=== PATIENT | male | born 1975 | race Caucasian/White ===

== ENCOUNTER 2024-01-15 12:01 | Inpatient (IN) ==
--- NOTE | 2024-01-15 12:37 | DR.EXTPAIN ---
HPI Time seen Time Seen by Provider: 01/15/24 12:35 PCP Primary Care Physician: KRISTY Sky Complaint/Symptoms Chief Complaint Doctor Comments: Patient was sent over by his primary care provider Dr. Carr a lot which is his throat doctor also. He need to be worked up for gas gangrene of his right foot. He does have diabetes. He states that the situation with his right foot has been going on for about a month and a half initially there was drainage done to that foot they opened up so it could drain. And just over the last couple days he began to notice that it began to swell up and he recently developed this smell to that foot. Was evaluated by Dr. Carr and was told to go to the ER here to be further evaluated. Chief Complaint:: Pt has a chronic wound on the bottom of the right foot with history of charcot foot. Pt has been followed by Dr. Carr. Thursday he noticed increased redness and swelling with a black area on the bottom of the right foot. Yesterday the swelling and pain to the foot had worsened. This morning he had a lot of purulent drainage noted from the wound. Pt sent pictures to Dr. Carr and was told to come to the ER because of the "gas in the wound" COVID-19 Coronavirus risk:travel/contact w/high risk person: No Has patient experienced Coronavirus symptoms: No Source History Provided: Patient Mode of arrival Mode of Arrival: Wheelchair Timing Onset of Chief Complaint: 01/15/24 PMH PMH Past Medical History: Yes Past Medical History: Diabetes and Hypertension Past Surgical History: Yes Past Surgical History Comment: dental surgery, multiple surgeries to the right foot, right great toe amputated, left great toe amputated. Family History History of Family Medical Conditions: Yes Family Medical History: Diabetes Mellitus, Cancer, [place], Coronary Artery Disease and Hypertension Family Medical History Comment: CKD Social History Does patient currently use any type of tobacco product: No Have you used tobacco products in the last 12 months: No Type of Tobacco Use: None Does any household member use tobacco: No Alcohol Use: None Do you use any recreational Drugs:: No Lives With: Family Lives Where: Home Travel Risk Coronavirus risk:travel/contact w/high risk person: No Has patient experienced Coronavirus symptoms: No Infectious screening In the last 2 months have you had wt loss of >10#?: NO Have you had fever, night sweats or hemotysis?: No Have you traveled outside the country in the last 6 months?: No Isolation: Standard ROS Review of Systems Constitutional: Other (Pain and swelling of right foot with an ulcer) Eyes: No Symptoms Reported ENTM: No Symptoms Reported Respiratoy: No Symptoms Reported Cardiovascular: No Symptoms Reported Gastrointestinal/Abdominal: No Symptoms Reported Genitourinary: No Symptoms Reported Neurological: No Symptoms Reported Musculoskeletal: Foot (r foot pain and swelling) Integumentary: No Symptoms Reported Hematologic/Lymphatic: No Symptoms Reported Endocrine: No Symptoms Reported Psychiatric: No Symptoms Reported PE Vital Signs Vitals: Vital Signs Temperature 98.0 F Pulse Rate 96 Pulse Rate 105 Respiratory Rate 18 Respiratory Rate 22 Blood Pressure 116/68 Blood Pressure 112/62 O2 Sat by Pulse Oximetry 96 O2 Sat by Pulse Oximetry 92 General Limitations: Physical Limitation (due to diabetic foot ulcers , patient has limited ambulation) General Appearance: In Distress (mild distress) Head Head Exam: Normal Inspection, Atraumatic and Normocephalic Eyes Eye exam: Normal Appearance, PERRL and EOMI ENT ENT Exam: Normal Exam, Normal Oropharynx and Normal External Ear Exam Neck Neck Exam: Normal Inspection and Full ROM Chest Chest Inspection: Normal Inspection and Symmetric Chest Wall Rise Respiratory Respiratory Exam: Normal Lung Sounds Bilat Cardiovascular Cardiovascular Exam: Regular Rate and Normal Rhythm Abdominal Exam Abdominal Exam: Normal Inspection, Normal Bowel Sounds and Soft Extremities Extremities Exam: Tenderness (swelling of r foot > left) Upper Extremities Shoulder Exam: Normal Inspection Arm Exam: Normal Inspection Elbow Exam: Normal Inspection Forearm Exam: Normal Inspection Hand Exam: Normal Inspection Lower Extremities Hip/Pelvis Exam: Normal Inspection Upper Leg Exam: Normal Inspection Knee Exam: Normal Inspection Lower Leg Exam: Normal Inspection Ankle Exam: Normal Inspection Foot/Toe Exam: Tenderness ( r foot >L) and Swelling (r foot >l) Gait Exam: Not Tested/Not Observed Back Back Exam: Normal Inspection and Full ROM Neurological Neurological Exam: Alert, Oriented X3 and CN II-XII Intact Psychiatric Psychiatric Exam: Normal Affect Skin Skin Exam: Other (ulcer on r ball of foot with pungent odor) MDM Differential Diagnosis Differential Diagnosis: Other (r foot ulcer with probable gas gangrene) COURSE Treatment Treatment: Remained relatively stable during ER visit. This patient had a x-ray done of right foot that showed marked soft tissue swelling about foot and ankle possible air within the soft tissue about foot. The [facility] and he was set the patient for admission and Dr. Carr will take the patient to surgery. Patient will be admitted and I spoke to Dr. Rainey the patient has gas gangrene and will be need to to go to surgery today. C-reactive protein number was elevated 93.50 had a sed rate that was elevated at 9 AM. The chest x-ray was negative. This patient was evaluated by Dr. Carr at patient also had a ROR Labs Reviewed Laboratory Results Reviewed?: Yes 01/15/24 12:40 01/15/24 12:40 Laboratory: WBC 14.7 X10^3/uL (3.6-10.0) H 01/15/24 12:40 RBC 4.29 X10^6/uL (4.7-6.0) L 01/15/24 12:40 Hgb 11.4 g/dL (13.5-18.0) L 01/15/24 12:40 Hct 36.0 % (42.0-54.0) L 01/15/24 12:40 MCV 84.1 fL (80.0-100.0) 01/15/24 12:40 MCH 26.6 pg (27.0-34.0) L 01/15/24 12:40 MCHC 31.7 g/dL (33.0-35.0) L 01/15/24 12:40 RDW 14.7 % (11.6-16.5) 01/15/24 12:40 Plt Count 409 X10^3/uL (150.0-450.0) 01/15/24 12:40 MPV 6.6 fL (7.4-11.0) L 01/15/24 12:40 Neut % (Auto) 73.8 % (42.0-75.0) 01/15/24 12:40 Lymph % (Auto) 17.5 % (21.0-51.0) L 01/15/24 12:40 [place] % (Auto) 6.6 % (0.0-13.0) 01/15/24 12:40 Eos % (Auto) 1.4 % (0.9-2.9) 01/15/24 12:40 Baso % (Auto) 0.7 % (0.2-1.0) 01/15/24 12:40 Neut # (Auto) 10.9 x10^3/uL (2.2-4.8) H 01/15/24 12:40 Lymph # (Auto) 2.6 X10^3/uL (1.3-2.9) 01/15/24 12:40 [place] # (Auto) 1.0 x10^3/uL (0.3-0.8) H 01/15/24 12:40 Eos # (Auto) 0.2 x10^3/uL (0.0-0.2) 01/15/24 12:40 Baso # (Auto) 0.1 X10^3/uL (0.0-0.1) 01/15/24 12:40 Absolute Nucleated RBC 0.1 /100WBC 01/15/24 12:40 ESR 94 MM/HOUR (0-15) H 01/15/24 12:40 Sodium 133 mmol/L (136-145) L 01/15/24 12:40 Corrected Sodium 135 mmol/L (136-145) L 01/15/24 12:40 Potassium 4.6 mmol/L (3.5-5.1) 01/15/24 12:40 Chloride 97 mmol/L (98-107) L 01/15/24 12:40 Carbon Dioxide 28.0 mmol/L (21-32) 01/15/24 12:40 BUN 25 mg/dL (7-18) H 01/15/24 12:40 Creatinine 1.27 mg/dL (0.70-1.30) 01/15/24 12:40 Est GFR (MDRD) Af Amer > 60 (>60) 01/15/24 12:40 Est GFR (MDRD) Non-Af > 60 (>60) 01/15/24 12:40 Glucose 191 mg/dL (65-99) H 01/15/24 12:40 Calcium 8.9 mg/dL (8.5-10.1) 01/15/24 12:40 C-Reactive Protein 93.50 mg/L (0-3.0) H 01/15/24 12:40 Opioid Opioid Risk Tool Age (Hernando box if 16-45): No History of Preadolescent Sexual Abuse: No Total: 0 Total Score Risk Category: Low Risk Copyright: Maximus SUTTON predicting aberrant behaviors Discharge Plan Diagnosis Discharge Problem: Gas gangrene Discharge Plan Patient Disposition: 09 ADMITTED INPATIENT Condition: Stable Prescriptions: No Action furosemide 40 mg tablet 40 mg PO QDAY atorvastatin 20 mg tablet 20 mg PO QDAY tamsulosin 0.4 mg capsule 0.4 mg PO QDAY glimepiride 4 mg tablet 4 mg PO QDAY lisinopril 40 mg tablet 40 mg PO QDAY Health Concerns: Post Hospitalization: new medications and changes needed to prevent readmission or further decline. Pt educated and given instructions on all concerns. Plan of Treatment: Continue with present treatment and follow up plan. Pt is to keep follow up appointment as instructed and take medications as ordered. Orders to Discharge Patient Discharge Orders: Transfer (Routine); Ordered 01/15/24 Ordered By: Andrzej Branch Follow ups/Referrals Follow ups/Referrals: LEX WHEELER [Primary Care Provider] - 3 days Instructions Stand Alone Forms: Post Hospital Follow Up Care
[2024-01-15 12:58] LABS: BASOPHILS # (AUTO) 0.1 X10^3/uL (0.0-0.1); BASOPHILS % (AUTO) 0.7 % (0.2-1.0); EOSINOPHILS # (AUTO) 0.2 x10^3/uL (0.0-0.2); EOSINOPHILS % (AUTO) 1.4 % (0.9-2.9); HEMOGLOBIN 11.4 g/dL (13.5-18.0); LYMPHOCYTES # (AUTO) 2.6 X10^3/uL (1.3-2.9); LYMPHOCYTES % (AUTO) 17.5 % (21.0-51.0); MEAN CORPUSCULAR HEMOGLOBIN 26.6 pg (27.0-34.0); MEAN CORPUSCULAR HGB CONC 31.7 g/dL (33.0-35.0); MEAN CORPUSCULAR VOLUME 84.1 fL (80.0-100.0); MEAN PLATELET VOLUME 6.6 fL (7.4-11.0); MONOCYTES % (AUTO) 6.6 % (0.0-13.0); NEUTROPHILS # (AUTO) 10.9 x10^3/uL (2.2-4.8); NEUTROPHILS % (AUTO) 73.8 % (42.0-75.0); PLATELET COUNT 409 X10^3/uL (150.0-450.0); RED BLOOD COUNT 4.29 X10^6/uL (4.7-6.0); RED CELL DISTRIBUTION WIDTH 14.7 % (11.6-16.5); WHITE BLOOD COUNT 14.7 X10^3/uL (3.6-10.0)
[2024-01-15 13:02] LABS: BLOOD UREA NITROGEN 25 mg/dL (7-18); CALCIUM 8.9 mg/dL (8.5-10.1); CHLORIDE 97 mmol/L (98-107); COR NA(FOR HYPERGLY) 135 mmol/L (136-145); CREATININE 1.27 mg/dL (0.70-1.30); GLUCOSE 191 mg/dL (65-99); POTASSIUM 4.6 mmol/L (3.5-5.1); SODIUM 133 mmol/L (136-145); eGFR NON BLACK RACES > 60 (>60)
[2024-01-15 13:11] LABS: ERYTHROCYTE SEDIMENTATION RATE 94 MM/HOUR (0-15)
--- NOTE | 2024-01-15 14:32 | RAD ---
EXAMINATION:ANKLE, RIGHTHISTORY:RT FOOT ULCER, POSS GAS GANGRENE; .COMPARISON STUDY:None.TECHNIQUE:Three views right ankleFINDINGS:Marked soft tissue swelling about the ankle and visualized foot. The osseous structures of the ankle appear intact. Joint spaces are maintained.IMPRESSION:Marked soft tissue swelling about the ankle and visualized foot.THIS IS AN ELECTRONICALLY VERIFIED FINAL REPORT01/15/2024 2:28 PM - Electronically signed by Darlene Santiago MD
--- NOTE | 2024-01-15 14:34 | RAD ---
EXAMINATION:FOOT, RIGHTHISTORY:RIGHT FOOT ULCER, POSS GAS GANGRENE; .COMPARISON STUDY:None.TECHNIQUE:Three views right footFINDINGS:There is marked soft tissue swelling about the foot and ankle. Potential air within the soft tissues about the foot. Chronic appearing amputation of the great toe beyond the proximal shaft of the 1st metatarsal. Dislocations of the 2nd and 3rd metatarsophalangeal joints which is probably chronic. Degenerative changes/subluxations 4th and 5th metatarsophalangeal joints. Areas of joint space narrowing, bony sclerotic changes of the tarsal bones. Consider Charcot's arthropathy.IMPRESSION:Marked soft tissue swelling about the foot and ankle. Possible air within the soft tissues about the foot.THIS IS AN ELECTRONICALLY VERIFIED FINAL REPORT01/15/2024 2:31 PM - Electronically signed by Darlene Santiago MD
--- NOTE | 2024-01-15 14:46 | CT ---
EXAMINATION:LOWER EXT W/OHISTORY:GANGRENE;COMPARISON:None. .br.br.br foot. Images reviewed in the axial imaging plane with reformatted sagittal and coronal images.The above CT scan was done with automated exposure control and the mA and kV was adjusted to obtain quality images according to patient size.FINDINGS:There is marked soft tissue swelling/edema of the superficial and deep subcutaneous adipose tissues about the foot and ankle. There is a small amount of air in the superficial subcutaneous adipose tissues about the plantar aspect of the forefoot.Extensive soft tissue edema between the tarsal bones and bases of the metatarsals.Chronic appearing fragmentation of the cuneiforms and bases of each of the metatarsals with dislocations/subluxations of the metatarsals suspicious for changes of chronic Charcot's arthropathy. The 1st toe is chronically amputated beyond the proximal shaft of the 1st metatarsal. There are dislocations of the 2nd, 3rd metatarsophalangeal joints and subluxations of the 4th and 5th metatarsophalangeal joints. Degenerative changes visualized PIP and D IP joints of the remaining toes.No focal osteopenia. No radiopaque foreign body seen.IMPRESSION:Small amount of air in the superficial subcutaneous adipose tissues about the plantar aspect of the forefoot.Extensive soft tissue swelling about the superficial and deep soft tissues of the foot consistent with diffuse cellulitis. Chronic appearing bony changes most consistent with chronic changes of Charcot's arthropathy. Other chronic appearing bony changes as described above.THIS IS AN ELECTRONICALLY VERIFIED FINAL REPORT01/15/2024 2:43 PM - Electronically signed by Darlene Santiago MD
[2024-01-15] MEDS ORDERED: KETAMINE HCL ONE (14:56)
[2024-01-15] MEDS ORDERED: XYLOCAINE 2 % (PLAIN) ONE (14:56)
--- NOTE | 2024-01-15 15:26 | EKG ---
Test Reason : surgical clearance Blood Pressure : */* mmHG Vent. Rate : 96 BPM Atrial Rate : 96 BPM P-R Int : 132 ms QRS Dur : 76 ms QT Int : 338 ms P-R-T Axes : 47 27 85 degrees QTc Int : 427 ms Normal sinus rhythm Normal ECG No previous ECGs available Confirmed by Hugh Elliott MD ([id number]) on 01/15/2024 5:14:12 PM Referred By: Confirmed By: Hugh Elliott MD
--- NOTE | 2024-01-15 15:57 | RAD ---
EXAMINATION:CHEST, 1 VIEWHISTORY:pre op, rt foot sx today at 5pm ; .COMPARISON STUDY:NoneTECHNIQUE:2 portable AP views of the chestFINDINGS:Lungs are expanded. Mild to moderate cardiac silhouette enlargement. Normal pulmonary vascular pattern. Bones are intact.IMPRESSION:Cardiac silhouette enlargement. No acute pulmonary infiltrate seen.THIS IS AN ELECTRONICALLY VERIFIED FINAL REPORT01/15/2024 3:54 PM - Electronically signed by Darlene Santiago MD
--- NOTE | 2024-01-15 15:58 | DR.CONSULT ---
CONSULT Consultation for Day of: Date: 01/15/24 Chief Complaint Chief Complaint: ulceration with pain and with gas gangrene of the right foot. wound of the left foot Allergies Allergies Allergy/AdvReac Type Severity Reaction Status Date / Time No Known Allergies Allergy Verified 01/15/24 12:19 History of Present Illness History of Present Illness: 48 male who sent text to my office staff today for wound that was worsening with fevers and pain. was found to have wound suggestive of gas gangrene on top of charcot foot and was told to go to the ER. he drove from [place] to come to ER at [facility]. Past Medical History Past Medical History: Diabetes and Hypertension Family History Family Medical History: Diabetes Mellitus, Cancer, [place], Coronary Artery Disease and Hypertension Social History Does patient currently use any type of tobacco product: No Have you used tobacco products in the last 12 months: No Type of Tobacco Use: None Does any household member use tobacco: No Alcohol Use: None Medications Home Medications: No Known Allergies Allergy (Verified 01/15/24 12:19) CONTINUE taking the following medications atorvastatin 20 mg tablet 20 mg PO QDAY 01/15/24 [History] furosemide 40 mg tablet 40 mg PO QDAY 01/15/24 [History] glimepiride 4 mg tablet 4 mg PO QDAY 01/15/24 [History] lisinopril 40 mg tablet 40 mg PO QDAY 01/15/24 [History] tamsulosin 0.4 mg capsule 0.4 mg PO QDAY 01/15/24 [History] Physical Exam Vital Signs: Vital Signs Temperature 98.0 F Pulse Rate 105 Respiratory Rate 22 Blood Pressure 112/62 O2 Sat by Pulse Oximetry 92 Musculoskeletal: Right (foot with large wound 6cm x 4cm and has undermining and tracking. erythema with streaking up the lateral foot to the ankle. lymphangitis noted. severe pain laterally. has mild malodr. heavy drainage noted. ), Left (left foot wound is under first met head and is 1.5cm diameter with purulence expressed. it does undermine about 1cm and without probe to bone however. he has no erythema on this side. ) and Foot (right foot charcot foot with equinus defomrity. he has severe erythema and edema with collapse and rockerbottom style foot. ) Plan (1) Other specified local infections of the skin and subcutaneous tissue: Status: Acute Narrative Support Text: IV abx. will need formal I&D in OR will need admission through weekend. may even need IV abx on discharge. (2) Type 2 diabetes mellitus with diabetic polyneuropathy: Status: Acute Narrative Support Text: uncontrolled. last A1C was in the 11s. (3) Charcot's joint, right ankle and foot: Status: Acute Narrative Support Text: unstable. have been awaiting closure of wound and normalization of glucose priro to surgery. at high risk for infection to charcot (4) Pressure ulcer of other site, stage 3: Status: Acute Narrative Support Text: wounds on both right and left foot with infection. will need OR debridement today due to gas gangrene on right. (5) Gas gangrene of foot: Status: Acute Narrative Support Text: plan for OR . has not eaten since AM. will need extensive I&D and washout of the right foot. may necessitate amputation however will see extent of infection. CT reviewed and x rays. hopefully not continguous with charcot joint.
[2024-01-15] MEDS: NS 100 ML IV 100 ML ONE (17:34)
[2024-01-15] MEDS: ANCEF VIAL 1 GRAM ONE (17:34)
[2024-01-15] MEDS: NS 1,000 ML IV 1,000 ML ONE (17:34)
[2024-01-15] MEDS: D5 1/2 NS 1,000 ML 1,000 ML IV ONE (17:56)
[2024-01-15] MEDS: DIPRIVAN VIAL 20 ML ONE (17:56)
[2024-01-15] MEDS: REGLAN INJ 10 MG VIAL ONE (17:56)
[2024-01-15] MEDS: PRECEDEX INJ VIAL ONE (17:56)
[2024-01-15] MEDS: VERSED ONE (17:56)
[2024-01-15] MEDS: ZOFRAN INJ 4 MG VIAL ONE (17:56)
[2024-01-15] MEDS: FENTANYL VIAL INJ 100 mcg ONE (17:56)
[2024-01-15] MEDS: BETADINE SOLN ONE ×2 (17:56→18:11)
[2024-01-15] MEDS: MARCAINE 0.25% INJ ONE (18:04)
--- NOTE | 2024-01-15 18:23 | DR.OPNOTE ---
OP NOTE Pre-Op Diagnosis: Charcot Arthropathy, gas gangrene (left) nonhealing ulcers (bilateral feet) Post-Op Diagnosis: Same Procedure Date Date Of Procedure: 01/15/24 Procedure: 1. Incision and drainage of left foot 2. Incision and drainage of right foot Type of Anesthesia: Local Anesthesia Comment: MAC Findings: See dictation Specimen/Pathology: Cultures EBL: 10cc Hardware: None Cultures: Right foot Complications:: None Needle/Sponge Count:: Counted Disposition/Condition: Pt. tolerated procedure without difficulty. Extubated in the OR and taken to PACU in stable condition.
[2024-01-16] MEDS: PERCOCET TAB 5/325 MG PO PRN (02:14)
[2024-01-16] MEDS: ZOFRAN INJ 4 MG VIAL IVP PRN (05:19)
[2024-01-16 06:44] LABS: BASOPHILS # (AUTO) 0.2 X10^3/uL (0.0-0.1); BASOPHILS % (AUTO) 0.9 % (0.2-1.0); EOSINOPHILS # (AUTO) 0.2 x10^3/uL (0.0-0.2); EOSINOPHILS % (AUTO) 1.3 % (0.9-2.9); HEMATOCRIT 34.5 % (42.0-54.0); HEMOGLOBIN 11.1 g/dL (13.5-18.0); LYMPHOCYTES % (AUTO) 22.7 % (21.0-51.0); MEAN CORPUSCULAR HEMOGLOBIN 27.2 pg (27.0-34.0); MEAN CORPUSCULAR HGB CONC 32.2 g/dL (33.0-35.0); MEAN CORPUSCULAR VOLUME 84.5 fL (80.0-100.0); MEAN PLATELET VOLUME 6.9 fL (7.4-11.0); MONOCYTES # (AUTO) 1.2 x10^3/uL (0.3-0.8); MONOCYTES % (AUTO) 6.5 % (0.0-13.0); NEUTROPHILS # (AUTO) 12.2 x10^3/uL (2.2-4.8); NEUTROPHILS % (AUTO) 68.6 % (42.0-75.0); PLATELET COUNT 416 X10^3/uL (150.0-450.0); RED BLOOD COUNT 4.08 X10^6/uL (4.7-6.0); RED CELL DISTRIBUTION WIDTH 14.7 % (11.6-16.5); WHITE BLOOD COUNT 17.8 X10^3/uL (3.6-10.0)
[2024-01-16 07:06] LABS: ALANINE AMINOTRANSFERASE 26 Units/L (12-78); ALBUMIN 2.8 g/dL (3.4-5.0); ALKALINE PHOSPHATASE 113 Units/L (46-116); ASPARTATE AMINO TRANSFERASE 16 Units/L (15-37); BLOOD UREA NITROGEN 32 mg/dL (7-18); CALCIUM 8.2 mg/dL (8.5-10.1); CARBON DIOXIDE 27.8 mmol/L (21-32); CHLORIDE 95 mmol/L (98-107); COR CA(FOR HYPOALB) 9.2 mg/dL (8.5-10.1); COR NA(FOR HYPERGLY) 134 mmol/L (136-145); CREATININE 1.51 mg/dL (0.70-1.30); GLUCOSE 287 mg/dL (65-99); POTASSIUM 5.3 mmol/L (3.5-5.1); SODIUM 130 mmol/L (136-145); TOTAL PROTEIN 7.7 g/dL (6.4-8.2); eGFR NON BLACK RACES 53 (>60)
[2024-01-16] MEDS ORDERED: NS 250 ML IV 25 ML IV PRN (07:43)
[2024-01-16] MEDS ORDERED: VANCOMYCIN IV *PREMIX 1 G/200 ML BAG 1 G/200 ML PIGGYBACK IV SCH (09:00)
--- NOTE | 2024-01-16 09:02 | NOTE.SOAP ---
Soap Note Note for Day of Date of Exam: 01/16/24 Subjective Data Subjective Data: Patient is POD1 s/p bilateral foot I&D. Patient doing well this am, despite he does not want to be here he has no complaints. Objective Data Objective Data: Left foot: wound is beefy granular and flat boarder; sub 1st metatarasal. No drainage Right foot: Wound extending along the midfoot, still a bit malodorous and mild serosanguinous drainage. Wound appears granular with islands of necrosis at the center. it is superficial without any tracking or tunneling noted. Edema noted to the right foot No changes from a neurovascular standpoint Assessment Assessment: S/p I&D of Bilateral feet - Gas gangrene, right foot - CHarcot arthropathy, right foot - Nonhealing diabetic pressure ulcers, bilateral feet Plan Plan: Patient seen this am; reinforced that this is a limb threatning issue that requires him to stay in the hospital. I did a dressing change this am with dry sterile dressing. Will take him back to the operating room on thursday for a repeat debridemetn of bilateral feet with application of graft. CT reviewed. pending VAS studies for vascular intervention. On scheduled IV abx. Will follow
[2024-01-16] MEDS: ZOSYN VIAL 3.375 GRAMS 3.375 G in NS 100 ML IV 100 ML IV SCH (09:07)
[2024-01-16] MEDS: VANCOMYCIN IV *PREMIX 2 G/400 ML BAG 2 G/400 ML PIGGYBACK IV ONE (09:07)
--- NOTE | 2024-01-16 10:54 | DR.H&P ---
H&P History & Physical for Day of: H&P Date: 01/16/24 Chief Complaint Chief Complaint: foot pain History of Present Illness History of Present Illness: Pt admitted from home via ER due to worsening right foot pain. Taken to OR yesterday for b/l plantar foot debridements. Further procedures planned for next week. Currently on IV abx with wound care. Pt denies complaints today and it eating and drinking without difficulty. No overnight events per nursing. 12pt ROS otherwise negative Past Medical History Past Medical History: Diabetes, Dyslipidemia and Hypertension Additional Medical History: BPH, obesity Past Surgical History Surgical History: Other (b/l great toe amputations, 2 other RT foot procedures) Family History Family Medical History: Diabetes Mellitus (father) and [place] (father) Family History Comment: Mother at 52 from COPD. Father at 78 due to CAD/DM2/CKD Social History Does patient currently use any type of tobacco product: No Have you used tobacco products in the last 12 months: No Type of Tobacco Use: None Does any household member use tobacco: No Alcohol Use: None Drug Use: None Medications Home Medications: Home Medications Medication Instructions Recorded Confirmed Type atorvastatin 20 mg tablet 20 mg PO QDAY 01/15/24 01/15/24 History furosemide 40 mg tablet 40 mg PO QDAY 01/15/24 01/15/24 History glimepiride 4 mg tablet 4 mg PO QDAY 01/15/24 01/15/24 History lisinopril 40 mg tablet 40 mg PO QDAY 01/15/24 01/15/24 History tamsulosin 0.4 mg capsule 0.4 mg PO QDAY 01/15/24 01/15/24 History Allergies Allergies Allergy/AdvReac Type Severity Reaction Status Date / Time No Known Allergies Allergy Verified 01/15/24 12:19 Labs 01/16/24 06:08 01/16/24 06:08 Labs: 01/15/24 18:10 Foot - Right Wound Gram Stain - Final 01/15/24 18:10 Foot - Right Wound Culture - Preliminary Laboratory WBC 17.8 X10^3/uL (3.6-10.0) H 01/16/24 06:08 RBC 4.08 X10^6/uL (4.7-6.0) L 01/16/24 06:08 Hgb 11.1 g/dL (13.5-18.0) L 01/16/24 06:08 Hct 34.5 % (42.0-54.0) L 01/16/24 06:08 MCV 84.5 fL (80.0-100.0) 01/16/24 06:08 MCH 27.2 pg (27.0-34.0) 01/16/24 06:08 MCHC 32.2 g/dL (33.0-35.0) L 01/16/24 06:08 RDW 14.7 % (11.6-16.5) 01/16/24 06:08 Plt Count 416 X10^3/uL (150.0-450.0) 01/16/24 06:08 MPV 6.9 fL (7.4-11.0) L 01/16/24 06:08 Neut % (Auto) 68.6 % (42.0-75.0) 01/16/24 06:08 Lymph % (Auto) 22.7 % (21.0-51.0) 01/16/24 06:08 Baxter % (Auto) 6.5 % (0.0-13.0) 01/16/24 06:08 Eos % (Auto) 1.3 % (0.9-2.9) 01/16/24 06:08 Baso % (Auto) 0.9 % (0.2-1.0) 01/16/24 06:08 Neut # (Auto) 12.2 x10^3/uL (2.2-4.8) H 01/16/24 06:08 Lymph # (Auto) 4.0 X10^3/uL (1.3-2.9) H 01/16/24 06:08 Baxter # (Auto) 1.2 x10^3/uL (0.3-0.8) H 01/16/24 06:08 Eos # (Auto) 0.2 x10^3/uL (0.0-0.2) 01/16/24 06:08 Baso # (Auto) 0.2 X10^3/uL (0.0-0.1) H 01/16/24 06:08 Absolute Nucleated RBC 0.1 /100WBC 01/16/24 06:08 ESR 94 MM/HOUR (0-15) H 01/15/24 12:40 Sodium 130 mmol/L (136-145) L 01/16/24 06:08 Corrected Sodium 134 mmol/L (136-145) L 01/16/24 06:08 Potassium 5.3 mmol/L (3.5-5.1) H 01/16/24 06:08 Chloride 95 mmol/L (98-107) L 01/16/24 06:08 Carbon Dioxide 27.8 mmol/L (21-32) 01/16/24 06:08 BUN 32 mg/dL (7-18) H 01/16/24 06:08 Creatinine 1.51 mg/dL (0.70-1.30) H 01/16/24 06:08 Est GFR (MDRD) Af Amer > 60 (>60) 01/16/24 06:08 Est GFR (MDRD) Non-Af 53 (>60) L 01/16/24 06:08 Glucose 287 mg/dL (65-99) H 01/16/24 06:08 POC Glucose (mg/dL) 112 mg/dL (65-99) H 01/15/24 18:36 Calcium 8.2 mg/dL (8.5-10.1) L 01/16/24 06:08 Corrected Calcium 9.2 mg/dL (8.5-10.1) 01/16/24 06:08 Total Bilirubin 0.30 mg/dL (0.2-1.0) 01/16/24 06:08 AST 16 Units/L (15-37) 01/16/24 06:08 ALT 26 Units/L (12-78) 01/16/24 06:08 Alkaline Phosphatase 113 Units/L (46-116) 01/16/24 06:08 C-Reactive Protein 93.50 mg/L (0-3.0) H 01/15/24 12:40 Total Protein 7.7 g/dL (6.4-8.2) 01/16/24 06:08 Albumin 2.8 g/dL (3.4-5.0) L 01/16/24 06:08 Globulin 4.9 g/dL (2.5-4.5) H 01/16/24 06:08 Albumin/Globulin Ratio 0.6 Ratio (1.1-2.1) L 06/22/24 06:08 Physical Exam Vital Signs: Vital Signs Temperature 98.3 F Temperature 100.2 F Pulse Rate [Brachial] 109 Pulse Rate [Brachial] 107 Respiratory Rate 18 Respiratory Rate 20 Respiratory Rate 18 Respiratory Rate 22 Respiratory Rate 18 Blood Pressure [Left Arm] 136/60 Blood Pressure [Left Arm] 109/52 O2 Sat by Pulse Oximetry 91 O2 Sat by Pulse Oximetry 93 Oriented: Time, Person and Place Ear: Normal (hearing grossly intact) Respiratory: Clear Throughout and Diminished Throughout Cardiovascular: Normal Auscultation: Bowel Sounds: Normal Palpation: Other (protuberant) Tenderness: Normal Psychiatric: Normal Mood Description: Calm Affect: Normal Speech Pattern: Clear and Appropriate Assessment/Plan (1) Other specified local infections of the skin and subcutaneous tissue: Narrative Support Text: per podiatry Status: Acute (2) Type 2 diabetes mellitus with diabetic polyneuropathy: Qualifiers: Diabetes mellitus superintendent terminal insulin use: with senior care use Qualified Code(s): E11.42 - Type 2 diabetes mellitus with diabetic polyneuropathy; Z79.4 - lobsterman (current) use of insulin Narrative Support Text: continue insulin, SSI and Lantus Status: Acute (3) Charcot's joint, right ankle and foot: Status: Acute (4) Pressure ulcer of other site, stage 3: Status: Acute (5) Gas gangrene of foot: Status: Acute (6) Essential (primary) hypertension: Narrative Support Text: monitor closely. Reportedly only taking lisinopril weekly now. Status: Acute (7) Mixed hyperlipidemia: Narrative Support Text: continue statin Status: Acute (8) Benign prostatic hyperplasia with lower urinary tract symptoms: Qualifiers: Lower urinary tract symptom detail: weak urinary stream Qualified Code(s): N40.1 - Benign prostatic hyperplasia with lower urinary tract symptoms; R39.12 - Poor urinary stream Narrative Support Text: continue Flomax Status: Acute (9) Morbid obesity due to excess calories: Narrative Support Text: consider outpt GLP1 vs bariatric surgery. Exercise limited due to habitus and foot problems. Status: Acute
[2024-01-16] MEDS: NovoLIN R (or HumuLIN R) SUBCUT PRN (11:09)
[2024-01-16] MEDS: VANCOMYCIN IV *PREMIX 1.5 G/300 ML BAG 1.5 G/300 ML PIGGYBACK IV SCH (21:36)
[2024-01-16] MEDS: SNACK - Diabetic Appropriate PO SCH ×2 (21:36→21:37)
[2024-01-16] MEDS: LANTUS SC SCH (21:39)
[2024-01-17 05:07] LABS: BASOPHILS # (AUTO) 0.2 X10^3/uL (0.0-0.1); BASOPHILS % (AUTO) 1.1 % (0.2-1.0); EOSINOPHILS # (AUTO) 0.3 x10^3/uL (0.0-0.2); EOSINOPHILS % (AUTO) 1.8 % (0.9-2.9); HEMATOCRIT 33.6 % (42.0-54.0); HEMOGLOBIN 10.8 g/dL (13.5-18.0); LYMPHOCYTES # (AUTO) 3.4 X10^3/uL (1.3-2.9); LYMPHOCYTES % (AUTO) 22.5 % (21.0-51.0); MEAN CORPUSCULAR VOLUME 84.4 fL (80.0-100.0); MEAN PLATELET VOLUME 6.7 fL (7.4-11.0); MONOCYTES # (AUTO) 1.1 x10^3/uL (0.3-0.8); MONOCYTES % (AUTO) 7.4 % (0.0-13.0); NEUTROPHILS # (AUTO) 10.2 x10^3/uL (2.2-4.8); NEUTROPHILS % (AUTO) 67.2 % (42.0-75.0); PLATELET COUNT 407 X10^3/uL (150.0-450.0); RED BLOOD COUNT 3.99 X10^6/uL (4.7-6.0); RED CELL DISTRIBUTION WIDTH 14.7 % (11.6-16.5); WHITE BLOOD COUNT 15.2 X10^3/uL (3.6-10.0)
[2024-01-17 05:22] LABS: ALANINE AMINOTRANSFERASE 24 Units/L (12-78); ALBUMIN 2.8 g/dL (3.4-5.0); ALKALINE PHOSPHATASE 97 Units/L (46-116); ASPARTATE AMINO TRANSFERASE 14 Units/L (15-37); BLOOD UREA NITROGEN 25 mg/dL (7-18); CARBON DIOXIDE 29.7 mmol/L (21-32); CHLORIDE 95 mmol/L (98-107); COR NA(FOR HYPERGLY) 133 mmol/L (136-145); GLUCOSE 257 mg/dL (65-99); SODIUM 129 mmol/L (136-145); TOTAL PROTEIN 7.9 g/dL (6.4-8.2); eGFR NON BLACK RACES 58 (>60)
[2024-01-17 05:28] LABS: POTASSIUM 5.1 mmol/L (3.5-5.1)
[2024-01-17] MEDS: LASIX PO SCH (09:21)
[2024-01-17] MEDS: FLOMAX PO SCH (09:21)
[2024-01-17] MEDS: LIPITOR TAB 20 MG PO SCH (09:21)
[2024-01-17] MEDS: LANTUS SC SCH (11:11)
[2024-01-17] MEDS: HYDROGEN PEROXIDE 3% EXT ONE (12:19)
[2024-01-17] MEDS: NS 1,000 ML IV 1,000 ML IV SCH (12:19)
[2024-01-17] MEDS: MINERAL OIL PO ONE (12:19)
[2024-01-17 12:22] VITALS: BMI 57.6
--- NOTE | 2024-01-17 14:30 | DR.PROGNOT ---
HOSPITAL PROGRESS NOTE Progress Note for Day of: Progress Note Date: 01/17/24 Chief Complaint Chief Complaint: foot wound History of Present Illness History of Present Illness: Pt with elevated sugars overnight. Also reported so me sweating and tingling of hands/fingers after starting most recent dose of Zosyn. BP doing well and podiatry planning further interventions next week. Wounds doing well per nursing and patient. Past Medical Family Social History Allergies: Allergies No Known Allergies Allergy (Verified 01/15/24 12:19) Vital Signs Vital Signs: Vital Signs Temperature 97.5 F Temperature 98.0 F Pulse Rate [Brachial] 104 Pulse Rate [Brachial] 104 Respiratory Rate 18 Respiratory Rate 18 Blood Pressure [Left Arm] 141/76 Blood Pressure [Left Arm] 139/69 O2 Sat by Pulse Oximetry 94 O2 Sat by Pulse Oximetry 93 Physical Exam Oriented: Time, Person and Place Ear: Normal (hearing grossly intact) Cardiovascular: Normal GI:Auscultation: Normal GI:Palpation: Other (protuberant) GI: Tenderness: Normal Musculoskeletal: Right (foot with large wound 6cm x 4cm and has undermining and tracking. erythema with streaking up the lateral foot to the ankle. lymphangitis noted. severe pain laterally. has mild malodr. heavy drainage noted. ), Left (left foot wound is under first met head and is 1.5cm diameter with purulence expressed. it does undermine about 1cm and without probe to bone however. he has no erythema on this side. ) and Foot (right foot charcot foot with equinus defomrity. he has severe erythema and edema with collapse and rockerbottom style foot. ) Psychiatric: Normal Mood Description: Calm Affect: Normal Speech Pattern: Clear and Appropriate Laboratory and Diagnostics 01/17/24 04:39 01/17/24 04:39 Labs: 01/15/24 18:10 Foot - Right Wound Gram Stain - Final 01/15/24 18:10 Foot - Right Wound Culture - Preliminary Laboratory WBC 15.2 X10^3/uL (3.6-10.0) H 01/17/24 04:39 RBC 3.99 X10^6/uL (4.7-6.0) L 01/17/24 04:39 Hgb 10.8 g/dL (13.5-18.0) L 01/17/24 04:39 Hct 33.6 % (42.0-54.0) L 01/17/24 04:39 MCV 84.4 fL (80.0-100.0) 01/17/24 04:39 MCH 27.0 pg (27.0-34.0) 01/17/24 04:39 MCHC 32.0 g/dL (33.0-35.0) L 01/17/24 04:39 RDW 14.7 % (11.6-16.5) 01/17/24 04:39 Plt Count 407 X10^3/uL (150.0-450.0) 01/17/24 04:39 MPV 6.7 fL (7.4-11.0) L 01/17/24 04:39 Neut % (Auto) 67.2 % (42.0-75.0) 01/17/24 04:39 Lymph % (Auto) 22.5 % (21.0-51.0) 01/17/24 04:39 [place] % (Auto) 7.4 % (0.0-13.0) 01/17/24 04:39 Eos % (Auto) 1.8 % (0.9-2.9) 01/17/24 04:39 Baso % (Auto) 1.1 % (0.2-1.0) H 01/17/24 04:39 Neut # (Auto) 10.2 x10^3/uL (2.2-4.8) H 01/17/24 04:39 Lymph # (Auto) 3.4 X10^3/uL (1.3-2.9) H 01/17/24 04:39 [place] # (Auto) 1.1 x10^3/uL (0.3-0.8) H 01/17/24 04:39 Eos # (Auto) 0.3 x10^3/uL (0.0-0.2) H 01/17/24 04:39 Baso # (Auto) 0.2 X10^3/uL (0.0-0.1) H 01/17/24 04:39 Absolute Nucleated RBC 0.0 /100WBC 01/17/24 04:39 ESR 94 MM/HOUR (0-15) H 01/15/24 12:40 Sodium 129 mmol/L (136-145) L 01/17/24 04:39 Corrected Sodium 133 mmol/L (136-145) L 01/17/24 04:39 Potassium 5.1 mmol/L (3.5-5.1) 01/17/24 04:39 Chloride 95 mmol/L (98-107) L 01/17/24 04:39 Carbon Dioxide 29.7 mmol/L (21-32) 01/17/24 04:39 BUN 25 mg/dL (7-18) H 01/17/24 04:39 Creatinine 1.40 mg/dL (0.70-1.30) H 01/17/24 04:39 Est GFR (MDRD) Af Amer > 60 (>60) 01/17/24 04:39 Est GFR (MDRD) Non-Af 58 (>60) L 01/17/24 04:39 Glucose 257 mg/dL (65-99) H 01/17/24 04:39 POC Glucose (mg/dL) 302 mg/dL (65-99) H 01/17/24 12:23 Calcium 8.0 mg/dL (8.5-10.1) L 01/17/24 04:39 Corrected Calcium 9.0 mg/dL (8.5-10.1) 01/17/24 04:39 Total Bilirubin 0.30 mg/dL (0.2-1.0) 01/17/24 04:39 AST 14 Units/L (15-37) L 01/17/24 04:39 ALT 24 Units/L (12-78) 01/17/24 04:39 Alkaline Phosphatase 97 Units/L (46-116) 01/17/24 04:39 C-Reactive Protein 93.50 mg/L (0-3.0) H 01/15/24 12:40 Total Protein 7.9 g/dL (6.4-8.2) 01/17/24 04:39 Albumin 2.8 g/dL (3.4-5.0) L 01/17/24 04:39 Globulin 5.1 g/dL (2.5-4.5) H 01/17/24 04:39 Albumin/Globulin Ratio 0.5 Ratio (1.1-2.1) L 01/17/24 04:39 Assessment and Plan 1: Diabetic foot wounds of both feet. Continue per podiatry 2: Charcot arthropathy of RIGHT foot. see above. 3: DM2, insulin-dependent, with hyperglycemia, wounds, CKD3a, and peripheral neuropathy. Increase Lantus and start double-dosing SSI. 4: Morbid obesity. Consider bariatric surgery and/or GLP1 after discharge. Problem Patient Problems: Patient Problems Gas gangrene (Acute) A48.0
[2024-01-17] MEDS ORDERED: NEOSPORIN OINT ONE (17:18)
[2024-01-17] MEDS: NEOSPORIN OINT TOP SCH (17:31)
[2024-01-17] MEDS: NovoLIN R (or HumuLIN R) SUBCUT PRN (17:34)
--- NOTE | 2024-01-17 19:09 | DR.CONSULT ---
CONSULT Consultation for Day of: Date: 01/17/24 Chief Complaint Chief Complaint: diabetic with wounds to the plantar aspect both feet Allergies Allergies Allergy/AdvReac Type Severity Reaction Status Date / Time No Known Allergies Allergy Verified 01/15/24 12:19 History of Present Illness History of Present Illness: 48 year old male with Poorly controlled diabetes, by his history current hemoglobin A1c greater than 11, with bilateral Charcot feet and status post bilateral great toe ray mutations now with significant diabetic ulcers to the plantar aspect of the right foot and the left foot. Past Medical History Past Medical History: Diabetes, Dyslipidemia and Hypertension Additional Medical History: BPH, obesity Past Surgical History Surgical History: Other (b/l great toe amputations, 2 other RT foot procedures) Family History Family Medical History: Diabetes Mellitus (father) and [place] (father) Social History Does patient currently use any type of tobacco product: No Have you used tobacco products in the last 12 months: No Type of Tobacco Use: None Does any household member use tobacco: No Alcohol Use: None Drug Use: None Medications Home Medications: No Known Allergies Allergy (Verified 01/15/24 12:19) CONTINUE taking the following medications atorvastatin 20 mg tablet 20 mg PO QDAY 01/15/24 [History] furosemide 40 mg tablet 40 mg PO QDAY 01/15/24 [History] glimepiride 4 mg tablet 4 mg PO QDAY 01/15/24 [History] lisinopril 40 mg tablet 40 mg PO QDAY 01/15/24 [History] tamsulosin 0.4 mg capsule 0.4 mg PO QDAY 01/15/24 [History] insulin glargine 100 unit/mL subcutaneous solution (Lantus U-100 Insulin) 60 unit subcut BID 01/16/24 [History] insulin regular human 100 unit/mL injection solution (Novolin R Regular U-100 Insulin) See Rx Instructions .Route .COMPLEX 01/16/24 [History] Review of Systems Constitutional: See HPI Eyes: No Symptoms Reported ENT: No Symptoms Reported Respiratory: No Symptoms Reported Cardiovascular: No Symptoms Reported Gastrointestinal: No Symptoms Reported Genitourinary: No Symptoms Reported Musculoskeletal: No Symptoms Reported Skin: See HPI Neurological: No Symptoms Reported Physical Exam Vital Signs: Vital Signs Temperature 97.7 F Temperature 97.5 F Pulse Rate [Brachial] 99 Pulse Rate [Brachial] 104 Respiratory Rate 20 Respiratory Rate 18 Respiratory Rate 18 Blood Pressure [Left Arm] 140/65 Blood Pressure [Left Arm] 141/76 O2 Sat by Pulse Oximetry 90 O2 Sat by Pulse Oximetry 94 Oriented: Normal, Time, Person and Place Eyes: Normal Ear: Normal Nose: Normal Throat: Normal Respiratory: Clear Throughout Cardiovascular: Normal and Other (Palpable distal pulses both feet ) : Normal Auscultation: Bowel Sounds: Normal Palpation: Normal Tenderness: Normal Skin: Wound (8 by 7 by 0.2 cm diabetic ulcer to the plantar aspect of the right foot with Charcot deformity of the right foot. 2.5 centimeter diameter by 0.2 centimeter ulcer to the plantar aspect of the left foot with Charcot deformity ) Musculoskeletal: Normal Psychiatric: Normal Mood Description: Calm Affect: Normal Speech Pattern: Clear and Appropriate Plan (1) Other specified local infections of the skin and subcutaneous tissue: Status: Acute Narrative Support Text: diabetic foot infections/ ulcers both feet. good circulation. I have nothing to add at this time. (2) Type 2 diabetes mellitus with diabetic polyneuropathy: Status: Acute Qualifiers: Diabetes mellitus [facility] insulin use: with [facility] use Qualified Code(s): E11.42 - Type 2 diabetes mellitus with diabetic polyneuropathy; Z79.4 - terminal make up operator (current) use of insulin (3) Charcot's joint, right ankle and foot: Status: Acute (4) Pressure ulcer of other site, stage 3: Status: Acute (5) Gas gangrene of foot: Status: Acute (6) Essential (primary) hypertension: Status: Acute (7) Mixed hyperlipidemia: Status: Acute (8) Benign prostatic hyperplasia with lower urinary tract symptoms: Status: Acute Qualifiers: Lower urinary tract symptom detail: weak urinary stream Qualified Code(s): N40.1 - Benign prostatic hyperplasia with lower urinary tract symptoms; R39.12 - Poor urinary stream (9) Morbid obesity due to excess calories: Status: Acute
[2024-01-17] MEDS: TYLENOL 325 MG TAB PO PRN (19:33)
[2024-01-18] MEDS: HIBICLENS WASH EXT ONE (01:44)
[2024-01-18 04:58] LABS: BASOPHILS # (AUTO) 0.1 X10^3/uL (0.0-0.1); BASOPHILS % (AUTO) 0.6 % (0.2-1.0); EOSINOPHILS # (AUTO) 0.4 x10^3/uL (0.0-0.2); EOSINOPHILS % (AUTO) 2.6 % (0.9-2.9); HEMATOCRIT 34.4 % (42.0-54.0); LYMPHOCYTES # (AUTO) 2.8 X10^3/uL (1.3-2.9); LYMPHOCYTES % (AUTO) 19.7 % (21.0-51.0); MEAN CORPUSCULAR HEMOGLOBIN 26.9 pg (27.0-34.0); MEAN CORPUSCULAR HGB CONC 31.9 g/dL (33.0-35.0); MEAN CORPUSCULAR VOLUME 84.4 fL (80.0-100.0); MEAN PLATELET VOLUME 6.7 fL (7.4-11.0); MONOCYTES # (AUTO) 1.1 x10^3/uL (0.3-0.8); MONOCYTES % (AUTO) 7.5 % (0.0-13.0); NEUTROPHILS % (AUTO) 69.6 % (42.0-75.0); PLATELET COUNT 394 X10^3/uL (150.0-450.0); RED BLOOD COUNT 4.07 X10^6/uL (4.7-6.0); RED CELL DISTRIBUTION WIDTH 14.7 % (11.6-16.5); WHITE BLOOD COUNT 14.4 X10^3/uL (3.6-10.0)
[2024-01-18 05:09] LABS: ALANINE AMINOTRANSFERASE 26 Units/L (12-78); ALBUMIN 2.8 g/dL (3.4-5.0); ALKALINE PHOSPHATASE 94 Units/L (46-116); ASPARTATE AMINO TRANSFERASE 15 Units/L (15-37); BLOOD UREA NITROGEN 17 mg/dL (7-18); CALCIUM 8.4 mg/dL (8.5-10.1); CHLORIDE 98 mmol/L (98-107); COR CA(FOR HYPOALB) 9.4 mg/dL (8.5-10.1); COR NA(FOR HYPERGLY) 137 mmol/L (136-145); CREATININE 1.01 mg/dL (0.70-1.30); GLUCOSE 259 mg/dL (65-99); POTASSIUM 4.6 mmol/L (3.5-5.1); SODIUM 133 mmol/L (136-145); TOTAL PROTEIN 7.9 g/dL (6.4-8.2); eGFR NON BLACK RACES > 60 (>60)
--- NOTE | 2024-01-18 08:27 | DR.PROGNOT ---
HOSPITAL PROGRESS NOTE Progress Note for Day of: Progress Note Date: 01/18/24 Chief Complaint Chief Complaint: foot wound History of Present Illness History of Present Illness: Slept well overnight. Asking for further evaluation for LEFT ear fullness. Reports chronic wax build up. Sugars stable. BP on hypertensive side. Vascular saw patient last night, no new recommendations from them. Past Medical Family Social History Allergies: Allergies No Known Allergies Allergy (Verified 01/15/24 12:19) Vital Signs Vital Signs: Vital Signs Temperature 97.3 F Temperature 98.4 F Pulse Rate [Brachial] 90 Pulse Rate [Brachial] 92 Respiratory Rate 18 Respiratory Rate 18 Blood Pressure [Left Arm] 168/94 Blood Pressure [Left Arm] 170/83 O2 Sat by Pulse Oximetry 92 O2 Sat by Pulse Oximetry 92 Physical Exam Oriented: Normal, Time, Person and Place Eyes: Normal Ear: Normal Nose: Normal Throat: Normal Cardiovascular: Normal and Other (Palpable distal pulses both feet ) : Normal GI:Auscultation: Normal GI:Palpation: Normal GI: Tenderness: Normal Skin: Wound (8 by 7 by 0.2 cm diabetic ulcer to the plantar aspect of the right foot with Charcot deformity of the right foot. 2.5 centimeter diameter by 0.2 centimeter ulcer to the plantar aspect of the left foot with Charcot deformity ) Musculoskeletal: Normal Psychiatric: Normal Mood Description: Calm Affect: Normal Speech Pattern: Clear and Appropriate Laboratory and Diagnostics 01/18/24 04:20 01/18/24 04:20 Labs: 01/15/24 18:10 Foot - Right Wound Gram Stain - Final 01/15/24 18:10 Foot - Right Wound Culture - Preliminary Laboratory WBC 14.4 X10^3/uL (3.6-10.0) H 01/18/24 04:20 RBC 4.07 X10^6/uL (4.7-6.0) L 01/18/24 04:20 Hgb 11.0 g/dL (13.5-18.0) L 01/18/24 04:20 Hct 34.4 % (42.0-54.0) L 01/18/24 04:20 MCV 84.4 fL (80.0-100.0) 01/18/24 04:20 MCH 26.9 pg (27.0-34.0) L 01/18/24 04:20 MCHC 31.9 g/dL (33.0-35.0) L 01/18/24 04:20 RDW 14.7 % (11.6-16.5) 01/18/24 04:20 Plt Count 394 X10^3/uL (150.0-450.0) 01/18/24 04:20 MPV 6.7 fL (7.4-11.0) L 01/18/24 04:20 Neut % (Auto) 69.6 % (42.0-75.0) 01/18/24 04:20 Lymph % (Auto) 19.7 % (21.0-51.0) L 01/18/24 04:20 [place] % (Auto) 7.5 % (0.0-13.0) 01/18/24 04:20 Eos % (Auto) 2.6 % (0.9-2.9) 01/18/24 04:20 Baso % (Auto) 0.6 % (0.2-1.0) 01/18/24 04:20 Neut # (Auto) 10.0 x10^3/uL (2.2-4.8) H 01/18/24 04:20 Lymph # (Auto) 2.8 X10^3/uL (1.3-2.9) 01/18/24 04:20 [place] # (Auto) 1.1 x10^3/uL (0.3-0.8) H 01/18/24 04:20 Eos # (Auto) 0.4 x10^3/uL (0.0-0.2) H 01/18/24 04:20 Baso # (Auto) 0.1 X10^3/uL (0.0-0.1) 01/18/24 04:20 Absolute Nucleated RBC 0.0 /100WBC 01/18/24 04:20 ESR 94 MM/HOUR (0-15) H 01/15/24 12:40 Sodium 133 mmol/L (136-145) L 01/18/24 04:20 Corrected Sodium 137 mmol/L (136-145) 01/18/24 04:20 Potassium 4.6 mmol/L (3.5-5.1) 01/18/24 04:20 Chloride 98 mmol/L (98-107) 01/18/24 04:20 Carbon Dioxide 28.0 mmol/L (21-32) 01/18/24 04:20 BUN 17 mg/dL (7-18) 01/18/24 04:20 Creatinine 1.01 mg/dL (0.70-1.30) 01/18/24 04:20 Est GFR (MDRD) Af Amer > 60 (>60) 01/18/24 04:20 Est GFR (MDRD) Non-Af > 60 (>60) 01/18/24 04:20 Glucose 259 mg/dL (65-99) H 01/18/24 04:20 POC Glucose (mg/dL) 251 mg/dL (65-99) H 01/18/24 05:15 Calcium 8.4 mg/dL (8.5-10.1) L 01/18/24 04:20 Corrected Calcium 9.4 mg/dL (8.5-10.1) 01/18/24 04:20 Magnesium 2.0 mg/dL (2.0-2.9) 01/18/24 04:20 Total Bilirubin 0.20 mg/dL (0.2-1.0) 01/18/24 04:20 AST 15 Units/L (15-37) 01/18/24 04:20 ALT 26 Units/L (12-78) 01/18/24 04:20 Alkaline Phosphatase 94 Units/L (46-116) 01/18/24 04:20 C-Reactive Protein 93.50 mg/L (0-3.0) H 01/15/24 12:40 Total Protein 7.9 g/dL (6.4-8.2) 01/18/24 04:20 Albumin 2.8 g/dL (3.4-5.0) L 01/18/24 04:20 Globulin 5.1 g/dL (2.5-4.5) H 01/18/24 04:20 Albumin/Globulin Ratio 0.5 Ratio (1.1-2.1) L 01/18/24 04:20 Assessment and Plan 1: Gas gangrene of RIGHT foot with diabetic foot wound on LEFT. Continue per podiatry. WBCs steadily improving. Continue current abx. 2: Charcot arthropathy of RIGHT foot. see above. 3: DM2, insulin-dependent, with hyperglycemia, wounds, CKD3a, and peripheral neuropathy. Increase Lantus and start double-dosing SSI. 4: Morbid obesity. Consider bariatric surgery and/or GLP1 after discharge. Problem Patient Problems: Patient Problems (Updated 01/16/24 @ 10:53 by Cheikh Rainey) Gas gangrene (Acute) A48.0
[2024-01-18] MEDS: FENTANYL VIAL INJ 100 mcg ONE (10:09)
[2024-01-18] MEDS: ANCEF VIAL 1 GRAM ONE (10:09)
[2024-01-18] MEDS: NS 100 ML IV 100 ML ONE (10:09)
[2024-01-18] MEDS: NS 1,000 ML IV 1,000 ML ONE (10:09)
[2024-01-18] MEDS: MARCAINE 0.25% INJ ONE (10:21)
[2024-01-18] MEDS: VERSED ONE (10:21)
[2024-01-18] MEDS: DIPRIVAN VIAL 20 ML ONE (10:21)
[2024-01-18] MEDS: BETADINE SOLN ONE (10:21)
[2024-01-18] MEDS: ZOFRAN INJ 4 MG VIAL ONE (10:21)
[2024-01-18] MEDS: PEPCID 20 MG VIAL ONE (10:21)
[2024-01-18] MEDS: REGLAN INJ 10 MG VIAL ONE (10:21)
[2024-01-18] MEDS ORDERED: XYLOCAINE 2 % (PLAIN) ONE (10:24)
[2024-01-18] MEDS ORDERED: KETAMINE HCL ONE (10:24)
[2024-01-18] MEDS ORDERED: PRECEDEX INJ VIAL ONE (10:24)
[2024-01-18 12:48] LABS: CREATININE 0.87 mg/dL (0.70-1.30); VANCOMYCIN,TROUGH 8.2 ug/mL (15-20)
[2024-01-18] MEDS: VANCOMYCIN IV *PREMIX 1.75 G/350 ML BAG 1.75 G/350 ML PIGGYBACK IV SCH (14:02)
[2024-01-18] MEDS: NovoLIN R (or HumuLIN R) SUBCUT PRN (14:55)
[2024-01-18] MEDS: LANTUS SC SCH (21:22)
[2024-01-19 04:15] VITALS: PULSE 90; RESP 18
[2024-01-19 05:08] LABS: BASOPHILS # (AUTO) 0.1 X10^3/uL (0.0-0.1); BASOPHILS % (AUTO) 0.7 % (0.2-1.0); EOSINOPHILS # (AUTO) 0.3 x10^3/uL (0.0-0.2); EOSINOPHILS % (AUTO) 2.5 % (0.9-2.9); HEMATOCRIT 32.5 % (42.0-54.0); HEMOGLOBIN 10.5 g/dL (13.5-18.0); LYMPHOCYTES # (AUTO) 2.5 X10^3/uL (1.3-2.9); LYMPHOCYTES % (AUTO) 17.4 % (21.0-51.0); MEAN CORPUSCULAR HEMOGLOBIN 27.1 pg (27.0-34.0); MEAN CORPUSCULAR HGB CONC 32.4 g/dL (33.0-35.0); MEAN CORPUSCULAR VOLUME 83.5 fL (80.0-100.0); MEAN PLATELET VOLUME 6.8 fL (7.4-11.0); MONOCYTES # (AUTO) 0.9 x10^3/uL (0.3-0.8); MONOCYTES % (AUTO) 6.5 % (0.0-13.0); NEUTROPHILS # (AUTO) 10.3 x10^3/uL (2.2-4.8); NEUTROPHILS % (AUTO) 72.9 % (42.0-75.0); PLATELET COUNT 408 X10^3/uL (150.0-450.0); RED BLOOD COUNT 3.89 X10^6/uL (4.7-6.0); RED CELL DISTRIBUTION WIDTH 14.4 % (11.6-16.5); WHITE BLOOD COUNT 14.1 X10^3/uL (3.6-10.0)
[2024-01-19 05:17] LABS: ALANINE AMINOTRANSFERASE 29 Units/L (12-78); ALBUMIN 2.6 g/dL (3.4-5.0); ALKALINE PHOSPHATASE 100 Units/L (46-116); ASPARTATE AMINO TRANSFERASE 19 Units/L (15-37); BLOOD UREA NITROGEN 17 mg/dL (7-18); CALCIUM 8.2 mg/dL (8.5-10.1); CARBON DIOXIDE 30.8 mmol/L (21-32); CHLORIDE 100 mmol/L (98-107); COR CA(FOR HYPOALB) 9.3 mg/dL (8.5-10.1); COR NA(FOR HYPERGLY) 139 mmol/L (136-145); CREATININE 1.09 mg/dL (0.70-1.30); GLUCOSE 255 mg/dL (65-99); POTASSIUM 4.8 mmol/L (3.5-5.1); SODIUM 135 mmol/L (136-145); TOTAL PROTEIN 7.3 g/dL (6.4-8.2); eGFR NON BLACK RACES > 60 (>60)
--- NOTE | 2024-01-19 06:31 | NOTE.SOAP ---
Soap Note Note for Day of Date of Exam: 01/19/24 Subjective Data Subjective Data: Patient is POD1 s/p bilat foot wound debridement with graft application. Doing well this am Objective Data Objective Data: Dressing c/d/i without strikethrough Assessment Assessment: s/p bilat foot wound debridement with graft application S/p I&D of Bilateral feet - Gas gangrene, right foot - CHarcot arthropathy, right foot - Nonhealing diabetic pressure ulcers, bilateral feet Plan Plan: Patient seen this am; reinforced that this is a limb threatning issue and he must be strictly nonweight bearing to the LLE. No intervention per vascular. Will be sending patient home on antibiotic and pain medication. He is okay for discharge from a podiatry standpoint. He is to follow up with Dr. Carr on thursday or sooner if any problems arise. Please dispense surgical shoe for left foot prior to discharge
[2024-01-19 08:29] VITALS: BP 173/81; TEMP 98.7; O2SAT 92
--- NOTE | 2024-01-19 10:29 | VAS ---
EXAMINATION:LOWER EXT ARTERIALHISTORY:NON HEALING LEG WOUNDS; .COMPARISON STUDY:None.TECHNIQUE:Pulsed wave Doppler and color Doppler imaging of the bilateral lower extremity arterial system was performed.FINDINGS:PSV (cm/sec) waveformRight LEAD SOFTWARE DEVELOPMENT ENGINEER 107 triphasicRight SFA Prox. 103 triphasicRight SFA mid 146 triphasicRight SFA distal 91 triphasicRight Pop art 74 triphasicRight DPA 118 triphasicRight SOLUTIONS MARKET CONSULTANT 109 triphasicLeft LEAD SOFTWARE DEVELOPMENT ENGINEER 138 triphasicLeft SFA Prox. 109 triphasicLeft SFA mid 109 triphasicLeft SFA distal 130 triphasicLeft Pop art 67 triphasicLeft DPA 92 triphasicLeft SOLUTIONS MARKET CONSULTANT 72 triphasicIMPRESSION:No sonographic evidence for hemodynamically significant stenosisTHIS IS AN ELECTRONICALLY VERIFIED FINAL REPORT01/19/2024 10:26 AM - Electronically signed by Ez Palacios MD
[2024-01-19] MEDS ORDERED: PHARMACY COMMENT IV ONE (20:30)
--- NOTE | 2024-01-20 08:16 | VAS ---
EXAM: ANKLE BRACHIAL INDEX HISTORY: NON HEALING FEET WOUNDS; COMPARISON: None TECHNIQUE: Multi-segmental arterial pressure with PVR wave form of both lower extremities. FINDINGS: RIGHT The right brachial segmental pressure mmHg is 136. The right thigh segmental pressure mmHg is 153 and the index is 1.12; waveform analysis is monophasic . The right calf segmental pressure mmHg is 125 and the index is 0.92; waveform analysis is monophasic. The right posterior tibial mmHg is 95 and the index is 0.70; waveform analysis is monophasic. LEFT The left brachial segmental pressure mmHg is 124. The left thigh segmental pressure mmHg is 190 and the index is 1.40; waveform analysis is monophasic. The left calf segmental pressure mmHg is 149 and the index is 1.10; waveform analysis is monophasic. The left posterior tibial mmHg is 165 and the index is 1.21; waveform analysis is monophasic. IMPRESSION: Right: 0.70 Left: 1.21 THIS IS AN ELECTRONICALLY VERIFIED FINAL REPORT 01/20/2024 8:12 AM - Electronically signed by Freddy Daily MD
--- NOTE | 2024-01-21 10:23 | PCM.DCPLAN ---
DISCHARGE SUMMARY Admission Date Date of Admission: 01/15/24 Discharge Date Discharge Date: 01/19/24 Admission Diagnoses (1) Other specified local infections of the skin and subcutaneous tissue: Status: Acute (2) Type 2 diabetes mellitus with diabetic polyneuropathy: Status: Acute (3) Charcot's joint, right ankle and foot: Status: Acute (4) Pressure ulcer of other site, stage 3: Status: Acute (5) Gas gangrene of foot: Status: Acute (6) Essential (primary) hypertension: Status: Acute (7) Mixed hyperlipidemia: Status: Acute (8) Benign prostatic hyperplasia with lower urinary tract symptoms: Status: Acute (9) Morbid obesity due to excess calories: Status: Acute Discharge Medications Discharge Medications: Home Medication List atorvastatin 20 mg tablet 20 mg PO QDAY 01/15/24 [History] furosemide 40 mg tablet 40 mg PO QDAY 01/15/24 [History] glimepiride 4 mg tablet 4 mg PO QDAY 01/15/24 [History] lisinopril 40 mg tablet 40 mg PO QDAY 01/15/24 [History] tamsulosin 0.4 mg capsule 0.4 mg PO QDAY 01/15/24 [History] insulin glargine 100 unit/mL subcutaneous solution (Lantus U-100 Insulin) 60 unit subcut BID 01/16/24 [History] insulin regular human 100 unit/mL injection solution (Novolin R Regular U-100 Insulin) See Rx Instructions .Route .COMPLEX 01/16/24 [History] doxycycline hyclate 100 mg capsule 100 mg PO BID #20 caps 01/18/24 [Rx] hydrocodone 5 mg-acetaminophen 325 mg tablet 1 tab PO Q4-6H PRN #36 tabs 01/19/24 [Rx] Prescriptions: doxycycline hyclate [facility] hydrocodone-acetaminophen [facility] Hospital Course Vital Signs: Vital Signs Temperature 98.3 F Pulse Rate [Brachial] 90 Respiratory Rate 18 Respiratory Rate 20 Respiratory Rate 20 Blood Pressure [Left Arm] 140/65 O2 Sat by Pulse Oximetry 93 Latest Lab Results: Laboratory Last Values WBC 14.1 X10^3/uL (3.6-10.0) H 01/19/24 04:20 RBC 3.89 X10^6/uL (4.7-6.0) L 01/19/24 04:20 Hgb 10.5 g/dL (13.5-18.0) L 01/19/24 04:20 Hct 32.5 % (42.0-54.0) L 01/19/24 04:20 MCV 83.5 fL (80.0-100.0) 01/19/24 04:20 MCH 27.1 pg (27.0-34.0) 01/19/24 04:20 MCHC 32.4 g/dL (33.0-35.0) L 01/19/24 04:20 RDW 14.4 % (11.6-16.5) 01/19/24 04:20 Plt Count 408 X10^3/uL (150.0-450.0) 01/19/24 04:20 MPV 6.8 fL (7.4-11.0) L 01/19/24 04:20 Neut % (Auto) 72.9 % (42.0-75.0) 01/19/24 04:20 Lymph % (Auto) 17.4 % (21.0-51.0) L 01/19/24 04:20 [place] % (Auto) 6.5 % (0.0-13.0) 01/19/24 04:20 Eos % (Auto) 2.5 % (0.9-2.9) 01/19/24 04:20 Baso % (Auto) 0.7 % (0.2-1.0) 01/19/24 04:20 Neut # (Auto) 10.3 x10^3/uL (2.2-4.8) H 01/19/24 04:20 Lymph # (Auto) 2.5 X10^3/uL (1.3-2.9) 01/19/24 04:20 [place] # (Auto) 0.9 x10^3/uL (0.3-0.8) H 01/19/24 04:20 Eos # (Auto) 0.3 x10^3/uL (0.0-0.2) H 01/19/24 04:20 Baso # (Auto) 0.1 X10^3/uL (0.0-0.1) 01/19/24 04:20 Absolute Nucleated RBC 0.1 /100WBC 01/19/24 04:20 ESR 94 MM/HOUR (0-15) H 01/15/24 12:40 Sodium 135 mmol/L (136-145) L 01/19/24 04:20 Corrected Sodium 139 mmol/L (136-145) 01/19/24 04:20 Potassium 4.8 mmol/L (3.5-5.1) 01/19/24 04:20 Chloride 100 mmol/L (98-107) 01/19/24 04:20 Carbon Dioxide 30.8 mmol/L (21-32) 01/19/24 04:20 BUN 17 mg/dL (7-18) 01/19/24 04:20 Creatinine 1.09 mg/dL (0.70-1.30) 01/19/24 04:20 Est GFR (MDRD) Af Amer > 60 (>60) 01/19/24 04:20 Est GFR (MDRD) Non-Af > 60 (>60) 01/19/24 04:20 Glucose 255 mg/dL (65-99) H 01/19/24 04:20 POC Glucose (mg/dL) 245 mg/dL (65-99) H 01/19/24 05:53 Calcium 8.2 mg/dL (8.5-10.1) L 01/19/24 04:20 Corrected Calcium 9.3 mg/dL (8.5-10.1) 01/19/24 04:20 Magnesium 2.0 mg/dL (2.0-2.9) 01/18/24 04:20 Total Bilirubin 0.30 mg/dL (0.2-1.0) 01/19/24 04:20 AST 19 Units/L (15-37) 01/19/24 04:20 ALT 29 Units/L (12-78) 01/19/24 04:20 Alkaline Phosphatase 100 Units/L (46-116) 01/19/24 04:20 C-Reactive Protein 93.50 mg/L (0-3.0) H 01/15/24 12:40 Total Protein 7.3 g/dL (6.4-8.2) 01/19/24 04:20 Albumin 2.6 g/dL (3.4-5.0) L 01/19/24 04:20 Globulin 4.7 g/dL (2.5-4.5) H 01/19/24 04:20 Albumin/Globulin Ratio 0.6 Ratio (1.1-2.1) L 01/19/24 04:20 Vancomycin Trough 8.2 ug/mL (15-20) L 01/18/24 12:20 Hospital Course: Patient presented to the ER and admitted for surgical intervention of diabetic foot wound to the left plantar surface along with a large area of gas gangrene to the right foot. Underwent surgical interventions on Thursday afternoon and then again on Thursday the day prior to discharge. Skip on IV antibiotics over the weekend with insulin adjusted to try to cover his hyperglycemia. After his second I&D podiatry recommended nonweightbearing status to the right foot, reinforce dressings, and follow-up with them in a week and PCP within a week or 2. This was agreeable to the primary team and patient was discharged home on home medications, antibiotics, and pain medication with instructions given by podiatry.
== END 2024-01-19 10:30 | disposition home or self-care (01) | DRG 573 ==
LOC: ER 12:01 → MED/SURG 12:01 → OBSVTOIN 16:42 → MED/SURG 17:19
PROVIDERS: ADMIT Family Medicine; ATTEND Family Medicine
PROC: DEBRIDE (2024-01-18 10:15)
DX: Z79.4 Long term (current) use of insulin; L08.89 Other specified local infections of the skin and subcutaneous tissue; E78.2 Mixed hyperlipidemia; N40.1 Benign prostatic hyperplasia with lower urinary tract symptoms; A48.0 Gas gangrene; E66.01 Morbid (severe) obesity due to excess calories; E11.42 Type 2 diabetes mellitus with diabetic polyneuropathy; M14.671 Charcot's joint, right ankle and foot; R39.12 Poor urinary stream; I10 Essential (primary) hypertension; L89.893 Pressure ulcer of other site, stage 3

== ENCOUNTER 2024-05-27 12:00 | Observation (INO) ==
[2024-05-27] MEDS: NOZIN NASAL SANITIZER TP ONE (08:50)
[2024-05-27] MEDS: NS 1,000 ML IV 1,000 ML ONE (08:52)
[2024-05-27 09:26] LABS: BILIRUBIN,URINE NEGATIVE (NEGATIVE); BLOOD/HEMOGLOBIN,URINE 1+ (NEGATIVE); GLUCOSE, URINE NEGATIVE (NEGATIVE); KETONES,URINE NEGATIVE (NEGATIVE); LEUKOCYTE ESTERASE ,URINE NEGATIVE (NEGATIVE); NITRITES,URINE NEGATIVE (NEGATIVE); PROTEIN,URINE 2+ (NEGATIVE); UROBILINOGEN,URINE NORMAL (NORMAL)
[2024-05-27 10:00] LABS: APPEARANCE,URINE SLIGHTLY HAZY (CLEAR); BACTERIA,URINE TRACE /HPF (NEGATIVE); COLOR,URINE YELLOW (YELLOW); SQUAMOUS EPITHELIAL CELL,UR MODERATE /HPF (NEGATIVE)
[2024-05-27 10:56] VITALS: BMI 52.0
[2024-05-27] MEDS: ZOFRAN INJ 4 MG VIAL ONE (10:56)
[2024-05-27] MEDS: PEPCID 20 MG VIAL ONE (10:56)
[2024-05-27] MEDS: REGLAN INJ 10 MG VIAL ONE (10:56)
[2024-05-27] MEDS: NS 100 ML IV 100 ML ONE (11:02)
[2024-05-27] MEDS: ANCEF VIAL 1 GRAM ONE (11:02)
[2024-05-27] MEDS: DIPRIVAN VIAL 20 ML ONE (11:06)
[2024-05-27] MEDS: ZEMURON 100 MG VIAL ONE (11:06)
[2024-05-27] MEDS: VERSED ONE (11:06)
[2024-05-27] MEDS: BRIDION ONE (11:06)
[2024-05-27] MEDS: FENTANYL VIAL INJ 100 mcg ONE (11:06)
[2024-05-27] MEDS: BETADINE SOLN ONE (11:15)
[2024-05-27] MEDS: ROBINUL ONE (11:15)
[2024-05-27] MEDS: DECADRON INJ ONE (11:28)
[2024-05-27] MEDS: ProvayBLUE 0.5% ONE (11:32)
[2024-05-27] MEDS: MARCAINE 0.25% INJ ONE (11:32)
[2024-05-27] MEDS: TOBRAMYCIN SULFATE ONE (11:32)
[2024-05-27] MEDS: VANCOMYCIN HCL ONE (11:32)
[2024-05-27] MEDS: NEO-SYNEPHRINE INJ ONE (11:43)
[2024-05-27] MEDS: OFIRMEV IV 1000 MG VIAL 1,000 MG/100 ML VIAL IV ONE (11:58)
[~2024-05-27 12:00] MED LIST: BENADRYL INJ 50 MG VIAL IVP PRN; KETAMINE HCL ONE; ULTANE GAS IN ONE; XYLOCAINE 2 % (PLAIN) ONE
[2024-05-27] MEDS ORDERED: DILAUDID INJ IVP PRN (13:46)
[2024-05-27] MEDS ORDERED: ZOFRAN INJ 4 MG VIAL IVP PRN (13:46)
[2024-05-27] MEDS ORDERED: TYLENOL 325 MG TAB PO PRN (13:46)
[2024-05-27] MEDS: DILAUDID INJ IVP PRN (14:06)
[2024-05-27] MEDS: NS 1,000 ML IV 1,000 ML IV SCH (14:48)
[2024-05-27] MEDS: ZOFRAN INJ 4 MG VIAL IVP PRN (15:06)
[2024-05-27] MEDS: PERCOCET TAB 5/325 MG PO PRN (18:31)
[2024-05-27] MEDS: NovoLIN R (or HumuLIN R) SUBCUT PRN (18:32)
[2024-05-27] MEDS: DILAUDID INJ ONE (19:59)
[2024-05-27] MEDS: COLACE CAP 100 MG PO SCH (20:57)
[2024-05-27] MEDS: NOZIN NASAL SANITIZER TP SCH (20:57)
[2024-05-27] MEDS: SNACK - Diabetic Appropriate PO SCH (20:58)
[2024-05-28 06:28] LABS: BLOOD UREA NITROGEN 26 mg/dL (7-18); CALCIUM 8.5 mg/dL (8.5-10.1); CARBON DIOXIDE 28.5 mmol/L (21-32); CHLORIDE 102 mmol/L (98-107); COR NA(FOR HYPERGLY) 141 mmol/L (136-145); CREATININE 1.16 mg/dL (0.70-1.30); GLUCOSE 304 mg/dL (65-99); POTASSIUM 5.2 mmol/L (3.5-5.1); SODIUM 136 mmol/L (136-145); eGFR NON BLACK RACES > 60 (>60)
--- NOTE | 2024-05-28 08:34 | NOTE.SOAP ---
Soap Note Note for Day of Date of Exam: 05/28/24 Subjective Data Subjective Data: patient bedside in recliner. doing well. no issues. has no strikethrough on bead pouch. Objective Data Objective Data: left foot wound stable. is now 3mm diameter without soi. incision healed and looks great on left right foot with ex fix. stable. no loosening. has CFT to toes. foot plantigrade and with suspension in frame. has wound plantar foot with bead pouch over top. beads left in place. dressing changed and placed new dry sterile dresings on the posterior ankle and plantar foot. Assessment Assessment: 49 M with charcot foot POD #1 from stabilization with ex fix. wound debridement of plantar foot right . Plan Plan: Plan for D/C to home today. ex fix checked. tight. ok for partial WB up to 50% on ex fix with assistive device. will change dressing in 2-3 days at home and they have supplies. left foot dressed today and almost healed from procedure a few weeks ago. ok to go into regular shoe on left. patient doesn't need any oral abx on discharge. pain is controlled at this time. RX's in chart and will see me as outpatient.
[2024-05-28] MEDS: LOVENOX INJ 40 MG SYR SC SCH (08:39)
[2024-05-28 12:17] VITALS: BP 148/77; PULSE 103; TEMP 98.2; O2SAT 92
[2024-05-28 12:50] VITALS: RESP 18
== END 2024-05-28 12:50 | disposition home or self-care (01) ==
LOC: MED/SURG
PROVIDERS: ADMIT Obstetrics & Gynecology Obstetrics; ATTEND Obstetrics & Gynecology Obstetrics
PROC: APEXFIX (2024-05-27 12:15)
PROC: DEBRIDE (2024-05-27 12:15)
DX: M24.571 Contracture, right ankle; G89.18 Other acute postprocedural pain; M14.671 Charcot's joint, right ankle and foot; M67.01 Short Achilles tendon (acquired), right ankle; E11.42 Type 2 diabetes mellitus with diabetic polyneuropathy; I10 Essential (primary) hypertension; E87.6 Hypokalemia; L89.893 Pressure ulcer of other site, stage 3; E11.65 Type 2 diabetes mellitus with hyperglycemia